=== PATIENT | male | born 1970 | race Caucasian/White ===

== ENCOUNTER 2018-10-22 15:27 | Inpatient (IN) | payer OTHER ==
[~2018-10-22] VITALS: Ht 177.8 cm; Wt 87.5 kg
[2018-10-22 16:00] VITALS: BP 131/71
[2018-10-22] MEDS ORDERED: LISINOPRIL20 MG PO (16:43)
[2018-10-22] MEDS ORDERED: EFFEXOR-XR150 MG PO (16:44)
[2018-10-22] MEDS ORDERED: NEXIUM40 MG PO (16:44)
[2018-10-22 17:24] LABS: EOS % 0.5 % (1.0-4.0); HEMATOCRIT 40.7 % (42.0-52.0); HEMOGLOBIN 13.9 g/dl (14.0-18.0); LYMPH # 1.8 10*3/uL (1.3-4.4); LYMPH % 44.3 % (27.0-41.0); MEAN CORPUSCULAR HGB 29.4 pg (27.0-31.0); MEAN CORPUSCULAR HGB CONC 34.2 g/dl (33.0-37.0); MEAN PLATELET VOLUME 8.7 fl (9.6-12.3); MONO # 0.3 10*3/uL (0.1-1.0); MONO % 7.1 % (3.0-9.0); NEUT # 1.9 10*3/uL (2.3-7.9); NEUT % 46.9 % (47.0-73.0); PLATELET COUNT AUTOMATED 317 10*3/uL (130-400); RED BLOOD COUNT 4.73 10*6/uL (4.50-5.90); RED CELL DISTRI WIDTH 13.1 % (0-14.5); WHITE BLOOD COUNT 4.1 10*3/uL (4.8-10.8)
[2018-10-22 17:27] LABS: BILIRUBIN NEGATIVE (NEGATIVE); BLOOD TRACE-INTACT (NEGATIVE); CLARITY CLEAR (CLEAR); COLOR YELLOW (YELLOW); GLUCOSE NEGATIVE (NEGATIVE); KETONE NEGATIVE (NEGATIVE); LEUKO ESTERASE NEGATIVE (NEGATIVE); NITRITE NEGATIVE (NEGATIVE); PH 6.5 (5.0-9.0)
[2018-10-22 17:34] LABS: INTERNATIONAL NORM RATIO 0.9 (2.0-3.5)
[2018-10-22 17:36] LABS: URINE AMPHETAMINES < 1000 (1000ng/ml); URINE BARBITURATES < 200 (200ng/ml); URINE BENZODIAZEPINES < 200 (200ng/ml); URINE CANNABINOIDS (THC) < 50 (50ng/ml); URINE COCAINE < 300 (300ng/ml); URINE METHADONE < 300 (300ng/ml); URINE OPIATES < 300 (300ng/ml)
[2018-10-22 17:38] LABS: WBC 0-2 wbc/hpf (0-5)
[2018-10-22 17:54] LABS: URINE PHENCYCLIDINE < 25 (25ng/ml)
[2018-10-22 17:59] LABS: ALBUMIN 4.1 gm/dl (3.1-4.5); ALKALINE PHOSPHATASE 60 U/L (45-117); BUN 8 mg/dl (7-24); CHLORIDE 94 mmol/L (98-107); CREATININE 0.82 mg/dL (0.70-1.30); POTASSIUM 4.1 mmol/L (3.5-5.1); SGOT/AST 26 IU/L (3-35); SGPT/ALT 25 U/L (12-78); SODIUM 130 mmol/L (136-145); TOTAL PROTEIN 7.4 gm/dL (6.4-8.2)
[2018-10-22 20:00] VITALS: BP 130/69
[2018-10-23] VITALS (7 sets, daily range): BP systolic 113–151; BP diastolic 56–86
[2018-10-24] VITALS: BP 129/76
[2018-10-24 08:00] VITALS: BP 102/62
[2018-10-24 12:00] VITALS: BP 133/72
[2018-10-24 16:00] VITALS: BP 137/88
[2018-10-24 20:00] VITALS: BP 141/93
[2018-10-25] VITALS: BP 102/57
[2018-10-25 06:27] LABS: EOS # 0.1 10*3/uL (0.0-0.4); HEMOGLOBIN 13.7 g/dl (14.0-18.0); LYMPH # 2.3 10*3/uL (1.3-4.4); LYMPH % 58.7 % (27.0-41.0); MEAN CELL VOLUME 85.8 fl (80.0-94.0); MEAN CORPUSCULAR HGB 29.4 pg (27.0-31.0); MEAN CORPUSCULAR HGB CONC 34.3 g/dl (33.0-37.0); MEAN PLATELET VOLUME 9.2 fl (9.6-12.3); MONO # 0.4 10*3/uL (0.1-1.0); MONO % 10.1 % (3.0-9.0); NEUT # 1.1 10*3/uL (2.3-7.9); NEUT % 27.9 % (47.0-73.0); PLATELET COUNT AUTOMATED 271 10*3/uL (130-400); RED BLOOD COUNT 4.66 10*6/uL (4.50-5.90); RED CELL DISTRI WIDTH 12.7 % (0-14.5)
[2018-10-25 06:46] LABS: CREATININE 0.81 mg/dL (0.70-1.30)
[2018-10-25 08:00] VITALS: BP 126/76
[2018-10-25] MEDS ORDERED: METHOCARBAMOL750 M1 PO (11:29)
== END 2018-10-25 11:50 | disposition home or self-care (01) | DRG 897 ==
LOC: 4E 15:27
PROVIDERS: ADMIT Internal Medicine
DX: F10.10 Alcohol abuse, uncomplicated (principal); F32.9 Major depressive disorder, single episode, unspecified; K21.9 Gastro-esophageal reflux disease without esophagitis; I10 Essential (primary) hypertension; Z88.0 Allergy status to penicillin; Z81.8 Family history of other mental and behavioral disorders; Z82.49 Family history of ischemic heart disease and other diseases of the circulatory system; Z79.899 Other long term (current) drug therapy